=== PATIENT | male | born 1980 | race Two or more races ===

== ENCOUNTER 2018-05-22 10:05 | Emergency (ER) | payer MEDICAID, OTHER ==
[~2018-05-22] VITALS: Ht 167.6 cm; Wt 79.4 kg
--- NOTE | 2018-05-22 10:15 | NUR ---
PT BIB [facility] S/P OD ON HEROIN, GIVEN 1MG NARCAN RAW SAMPLER. NOW A/OX4, PERRLA, FOLLOWING COMMANDS. RESP EVEN UNLABORED. SKIN WARM DRY. PLACED ON TELE MONITOR IN ER BED 07. NOTED PT WITH ROOM AIR SAT 88% WHILE LYING DOWN, PLACED ON 3L VIA NC. CLOSELY MONITORING.
--- NOTE | 2018-05-22 10:26 | NUR ---
PT REFUSES ACCUCHECK. DENIES DIABETES. PROVIDED WITH APPLE JUICE.
--- NOTE | 2018-05-22 12:10 | NUR ---
Patient discharged to home in stable condition. Written and verbal after care instructions given. Patient verbalizes understanding of instruction. ambulatory steady gait.
[2018-05-22 12:11] VITALS: BP 128/75
== END 2018-05-22 12:12 | disposition home or self-care (01) ==
LOC: ER 10:09
DX: T40.2X1A Poisoning by other opioids, accidental (unintentional), initial encounter (principal); Y92.89 Other specified places as the place of occurrence of the external cause; Z60.2 Problems related to living alone
CPT/HCPCS: A4606; Z7610